=== PATIENT | female | born 1950 | race Caucasian/White ===

== ENCOUNTER 2020-01-17 11:26 | Outpatient (REF) | payer MEDICARE, OTHER, SELFPAY ==
--- NOTE | 2020-01-17 | MM_ITS ---
EXAMINATION: MM SCREENING DIGITAL BREAST TOMOSYNTHESIS, BILATERAL CLINICAL INFORMATION: Screening. Asymptomatic. The lifetime risk of breast cancer based on the Tyrer-Cuzick Model is 3.3%. COMPARISON: Mammography: July 07, 2018 and studies dating back to December 30, 2011 TECHNIQUE: Digital breast tomosynthesis is performed in both the craniocaudal and mediolateral oblique views along with computer-aided detection (CAD). Synthesized 2D images are generated from the tomosynthesis. Additional right exaggerated craniocaudal view performed. FINDINGS: There are scattered areas of fibroglandular density (ACR BI-RADS breast composition Category b). There are no significant masses, abnormal calcifications, or other abnormalities. MM/MM tomosynthesis screening BI IMPRESSION: There are no significant changes from prior study. ASSESSMENT: BI-RADS 1: Negative RECOMMENDATION: Routine annual mammography screening. This patient's information was entered into a reminder system with a target due date for their next mammogram.
== END 2020-01-17 11:27 | disposition home or self-care (01) ==
LOC: HO.MAMMO 11:26
PROVIDERS: PCP Internal Medicine; Visit Provider Internal Medicine
DX: Z12.31 Encounter for screening mammogram for malignant neoplasm of breast (principal)
CPT/HCPCS: 77063; 77067

== ENCOUNTER 2020-02-13 09:18 | Outpatient (REF) | payer MEDICARE, OTHER, SELFPAY ==
[2020-02-13 10:04] LABS: MANUAL DIFF FLAG NO
[2020-02-13 10:20] LABS: Basophils Percent Auto 0.4 % (0-2); Eosinophils Absolute Auto 0.1 X10*3/uL (0.0-0.4); Eosinophils Percent Auto 1.5 % (0-4); Hematocrit 41.3 % (37-47); Hemoglobin 14.1 g/dl (12.0-16.0); Imm Gran Abs Auto 0.02 X10*3/uL (0.00-0.03); Imm Gran Pct Auto 0.4 % (0.0-0.4); Lymphocytes Absolute Auto 1.1 X10*3/uL (1.2-4.9); Lymphocytes Percent Auto 23.5 % (20-40); Mean Corpuscular HGB Conc 34.1 g/dl (31.0-35.0); Mean Corpuscular Volume 90.8 fL (80-98); Mean Platelet Volume 11.5 fL (9.4-12.3); Monocytes Absolute Auto 0.3 X10*3/uL (0.1-1.2); Monocytes Percent Auto 6.1 % (2-11); Neutrophils Absolute Auto 3.2 X10*3/uL (2.0-8.3); Neutrophils Percent Auto 68.1 % (45-73); Platelet Count 150 X10*3/uL (160-400); Red Blood Count 4.55 X10*6/uL (4.20-5.50); Red Cell Distribution Width 12.2 % (11.0-16.0); White Blood Count 4.7 X10*3/uL (4.8-10.8)
[2020-02-13 10:35] LABS: Alanine Aminotransferase 14 U/L (0-31); Albumin Level 4.3 g/dL (3.5-5.0); Alkaline Phosphatase 72 U/L (39-117); Anion Gap 10 (12-20); Aspartate Amino Transferase 22 U/L (5-31); Bilirubin Total 1.1 mg/dL (0.0-1.0); Blood Urea Nitrogen 17 mg/dL (9-16); Calcium 8.7 mg/dL (8.4-10.2); Carbon Dioxide 29 mmol/L (22-29); Chloride 103 mmol/L (96-108); Cholesterol 239 mg/dL; Estimated Glomerular Filt Rate > 60; Glucose Fasting 81 mg/dL (60-99); HDL Cholesterol 92 mg/dL; LDL Cholesterol Calculated 140 mg/dl; Potassium 4.1 mmol/l (3.3-5.1); Sodium 138 mmol/L (135-145); Total Protein 6.3 g/dL (6.5-8.0); Triglycerides 39 mg/dL
[2020-02-13 10:54] LABS: Vitamin D 25-OH Total 44.9 ng/mL (>30)
== END 2020-02-13 09:19 | disposition home or self-care (01) ==
LOC: HO.10HDL 09:18
PROVIDERS: PCP Internal Medicine; Visit Provider Internal Medicine
DX: E78.00 Pure hypercholesterolemia, unspecified (principal); K57.90 Diverticulosis of intestine, part unspecified, without perforation or abscess without bleeding; M81.0 Age-related osteoporosis without current pathological fracture
CPT/HCPCS: 36415; 80053; 80061; 82306; 85025

== ENCOUNTER 2020-07-08 15:07 | Outpatient (REF) | payer MEDICARE, OTHER, SELFPAY ==
--- NOTE | ~2020-07-08 | XR_ITS ---
EXAMINATION: XR CHEST CLINICAL INFORMATION: Cough and wheezing COMPARISON: Previous chest x-ray March 2012 TECHNIQUE: 2 views of the chest were obtained. FINDINGS: The heart does not appear enlarged. There is abnormal contour to the aortic knob. Appearance is questionable for possible aneurysm. The hilar and mediastinal contours are otherwise unremarkable. The lungs are well inflated. There is biapical pleural and parenchymal scarring that is unchanged. The lungs are otherwise clear. There is no pleural effusion or pneumothorax. There is curvature of the lower thoracic and upper lumbar spine to the right. There may be bilateral cervical ribs. XR/XR chest 2V IMPRESSION: New abnormal contour to the aortic knob questionable for aneurysm. Follow-up CTA of the chest recommended. The Findings will be communicated by the [facility] work flow quality assurance lab technician Minna Dunlap.
== END 2020-07-08 15:08 | disposition home or self-care (01) ==
LOC: HO.XRAY 15:07
PROVIDERS: PCP Internal Medicine; Visit Provider Internal Medicine
DX: R05 Cough (principal); R06.2 Wheezing; K21.9 Gastro-esophageal reflux disease without esophagitis
CPT/HCPCS: 71046

== ENCOUNTER 2020-07-09 09:31 | Outpatient (REF) | payer MEDICARE, OTHER, SELFPAY ==
[2020-07-09 10:22] LABS: Anion Gap 10 (12-20); Blood Urea Nitrogen 18 mg/dL (9-16); Calcium 9.5 mg/dL (8.4-10.2); Carbon Dioxide 30 mmol/L (22-29); Chloride 107 mmol/L (96-108); Estimated Glomerular Filt Rate > 60; Glucose Fasting 86 mg/dL (60-99); Potassium 4.2 mmol/L (3.3-5.1); Sodium 143 mmol/L (135-145)
== END 2020-07-09 09:32 | disposition home or self-care (01) ==
LOC: HO.10HDL 09:31
PROVIDERS: Visit Provider Internal Medicine
DX: Z01.812 Encounter for preprocedural laboratory examination (principal); I10 Essential (primary) hypertension
CPT/HCPCS: 36415; 80048

== ENCOUNTER 2020-09-10 15:53 | Outpatient (REF) | payer MEDICARE, OTHER, SELFPAY ==
[2020-09-10 16:35] LABS: Anion Gap 13 (12-20); Blood Urea Nitrogen 19 mg/dL (9-16); Calcium 9.3 mg/dL (8.4-10.2); Carbon Dioxide 28 mmol/L (22-29); Chloride 105 mmol/L (96-108); Estimated Glomerular Filt Rate > 60; Glucose Random 111 mg/dL (60-115); Potassium 3.9 mmol/L (3.3-5.1); Sodium 142 mmol/L (135-145)
== END 2020-09-10 15:54 | disposition home or self-care (01) ==
LOC: HO.LAB 15:53
PROVIDERS: PCP Internal Medicine; Visit Provider Internal Medicine
DX: Z01.812 Encounter for preprocedural laboratory examination (principal)
CPT/HCPCS: 36415; 80048

== ENCOUNTER 2020-09-15 08:15 | Outpatient (REF) | payer MEDICARE, OTHER, SELFPAY ==
--- NOTE | ~2020-09-15 | CT_ITS ---
EXAMINATION: CT ANGIOGRAM CHEST CLINICAL INFORMATION: Possible aneurysm of the thoracic aorta. COMPARISON: Previous chest x-rays, most recent 07/08/2020. TECHNIQUE: Multiple axial images were obtained through the chest after the administration of 70 mL of Omnipaque 350 intravenous contrast. Extensive vascular post-processing including two-dimensional and three-dimensional reformatted images were created and reviewed on an independent workstation. This CT examination was performed using dose optimization techniques as appropriate, variously including the following: *Automated exposure control *Adjustment of mA and/or kV according to patient size (this includes techniques or standardized protocols for targeted exams where dose is matched to indication/reason for exam; i.e. extremities or head) *Use of iterative reconstruction technique DLP: 78 mGy-cm FINDINGS: The ascending thoracic aorta is normal in caliber measuring 3.2 x 3.1 cm. There is mild dilatation of the distal aortic arch measuring up to 3.3 cm. The descending thoracic aorta is normal in caliber measuring 2.3 cm. The great vessel origins are patent. There is variant anatomy with direct origin of the left vertebral artery from the aortic arch. Heart does not appear enlarged. There is no pericardial effusion. There are no enlarged hilar or mediastinal lymph nodes. The thyroid gland is unremarkable. There is mild biapical pleural parenchymal scarring. The lungs are otherwise clear. There is no pleural effusion or pleural thickening. No chest wall mass or enlarged axillary lymph nodes are seen. There may be left renal peripelvic cysts. Images through the upper abdomen are otherwise unremarkable. There is curvature of the proximal thoracic spine to the left. Bony structures are otherwise unremarkable CT/CT angio chest IMPRESSION: Mild dilatation of the distal aortic arch measuring 3.3 cm. No aneurysm is seen.
[2020-09-15] MEDS: iohexoL 350 MG/ML 100 ML INFUS..BTL IV (09:14)
== END 2020-09-15 08:16 | disposition home or self-care (01) ==
LOC: HO.CT 08:15
PROVIDERS: Visit Provider Internal Medicine
DX: R91.8 Other nonspecific abnormal finding of lung field (principal)
CPT/HCPCS: 71275; Q9967

== ENCOUNTER 2021-01-30 07:19 | Outpatient (REF) | payer MEDICARE, OTHER, SELFPAY ==
--- NOTE | ~2021-01-30 | MM_ITS ---
EXAMINATION: MM SCREENING DIGITAL BREAST TOMOSYNTHESIS, BILATERAL CLINICAL INFORMATION: Screening. Asymptomatic. The lifetime risk of breast cancer based on the Tyrer-Cuzick Model is 3%. COMPARISON: Mammography: 01/17/2020, 07/07/2018, 06/29/2018, 06/22/2017 TECHNIQUE: Digital breast tomosynthesis is performed in both the craniocaudal and mediolateral oblique views along with computer-aided detection (CAD). Synthesized 2D images are generated from the tomosynthesis. FINDINGS: There are scattered areas of fibroglandular density (ACR BI-RADS breast composition Category b). There are no significant masses, abnormal calcifications, or other abnormalities. Parenchymal pattern is similar to prior exams. The axilla and skin contours are unremarkable. MM/MM tomosynthesis screening BI IMPRESSION: No mammographic evidence of malignancy. ASSESSMENT: BI-RADS 1: Negative RECOMMENDATION: Routine annual mammography screening. This patient's information was entered into a reminder system with a target due date for their next mammogram.
== END 2021-01-30 07:20 | disposition home or self-care (01) ==
LOC: HO.MAMMO 07:19
PROVIDERS: PCP Internal Medicine; Visit Provider Obstetrics & Gynecology
DX: Z12.31 Encounter for screening mammogram for malignant neoplasm of breast (principal)
CPT/HCPCS: 77063; 77067

== ENCOUNTER 2021-08-27 08:03 | Outpatient (REF) | payer MEDICARE, OTHER, SELFPAY ==
[2021-08-27 10:32] LABS: MANUAL DIFF FLAG NO
[2021-08-27 10:36] LABS: Basophils Percent Auto 0.5 % (0-2); Eosinophils Absolute Auto 0.1 X10*3/uL (0.0-0.4); Eosinophils Percent Auto 1.5 % (0-4); Hemoglobin 14.2 g/dl (12.0-16.0); Imm Gran Abs Auto 0.01 X10*3/uL (0.00-0.03); Imm Gran Pct Auto 0.2 % (0.0-0.4); Lymphocytes Absolute Auto 1.4 X10*3/uL (1.2-4.9); Lymphocytes Percent Auto 34.7 % (20-40); Mean Corpuscular HGB Conc 34.6 g/dl (31.0-35.0); Mean Corpuscular Hemoglobin 31.6 pg (27.0-33.0); Mean Corpuscular Volume 91.1 fL (80.0-98.0); Mean Platelet Volume 11.6 fL (9.4-12.3); Monocytes Absolute Auto 0.4 X10*3/uL (0.1-1.2); Monocytes Percent Auto 10.8 % (2-11); Neutrophils Absolute Auto 2.1 x10*3/uL (2.0-8.3); Neutrophils Percent Auto 52.3 % (45-73); Platelet Count 156 X10*3/uL (160-400); Red Cell Distribution Width 12.4 % (11.0-16.0); White Blood Count 4.1 X10*3/uL (4.8-10.8)
[2021-08-27 10:55] LABS: Alanine Aminotransferase 24 U/L (0-31); Albumin Level 4.3 g/dL (3.5-5.0); Alkaline Phosphatase 71 U/L (39-117); Anion Gap 10 (12-20); Aspartate Amino Transferase 31 U/L (5-31); Bilirubin Total 0.8 mg/dL (0.0-1.0); Blood Urea Nitrogen 22 mg/dL (9-16); Calcium 9.7 mg/dL (8.4-10.2); Carbon Dioxide 30 mmol/L (22-29); Chloride 106 mmol/L (96-108); Cholesterol 266 mg/dL; Estimated Glomerular Filt Rate > 60; Glucose Fasting 80 mg/dL (60-99); HDL Cholesterol 85 mg/dL; LDL Cholesterol Calculated 174 mg/dl; Potassium 3.9 mmol/L (3.3-5.1); Sodium 142 mmol/L (135-145); Total Protein 6.4 g/dL (6.5-8.0); Triglycerides 37 mg/dL
[2021-08-27 11:11] LABS: Vitamin D 25-OH Total 63.5 ng/mL (>30)
== END 2021-08-27 08:04 | disposition home or self-care (01) ==
LOC: HO.10HDL 08:03
PROVIDERS: Visit Provider Internal Medicine
DX: Z00.00 Encounter for general adult medical examination without abnormal findings (principal); M81.0 Age-related osteoporosis without current pathological fracture
CPT/HCPCS: 36415; 80053; 80061; 82306; 85025

== ENCOUNTER 2021-09-03 07:52 | Outpatient (REF) | payer MEDICARE, OTHER, SELFPAY ==
[2021-09-03 11:26] LABS: Cholesterol 257 mg/dL; HDL Cholesterol 81 mg/dL; LDL Cholesterol Calculated 169 mg/dl; Triglycerides 39 mg/dL
== END 2021-09-03 07:53 | disposition home or self-care (01) ==
LOC: HO.10HDL 07:52
PROVIDERS: Visit Provider Internal Medicine
DX: E78.00 Pure hypercholesterolemia, unspecified (principal)
CPT/HCPCS: 36415; 80061

== ENCOUNTER 2021-09-15 15:20 | Outpatient (REF) | payer MEDICARE, OTHER, SELFPAY ==
[2021-09-15 16:58] LABS: C Reactive Protein 0.07 mg/dL (< or = 0.50)
[2021-09-15 17:10] LABS: Uric Acid 2.9 mg/dL (2.4-5.7)
== END 2021-09-15 15:21 | disposition home or self-care (01) ==
LOC: HO.LAB 15:20
PROVIDERS: PCP Internal Medicine; Visit Provider Internal Medicine
DX: R60.0 Localized edema (principal); M79.675 Pain in left toe(s)
CPT/HCPCS: 36415; 84550; 86140

== ENCOUNTER 2021-09-21 13:59 | Outpatient (REF) | payer MEDICARE, OTHER, SELFPAY ==
--- NOTE | ~2021-09-21 | XR_ITS ---
EXAMINATION: XR FOOT, LEFT CLINICAL INFORMATION: Pain. COMPARISON: 07/02/2014. TECHNIQUE: AP, lateral, and oblique views of the left foot. FINDINGS: There is no evidence of acute fracture or dislocation of the left foot. Joint spaces are maintained. There is again noted to be some mild hallux valgus deformity of the 1st metatarsophalangeal joint with some adjacent medial soft tissue swelling. No radiopaque foreign bodies are identified. XR/XR foot LT min 3V IMPRESSION: Hallux valgus deformity of the 1st toe. No acute fracture or dislocation.
== END 2021-09-21 14:00 | disposition home or self-care (01) ==
LOC: HO.XRAY 13:59
PROVIDERS: PCP Internal Medicine; Visit Provider Internal Medicine
DX: M79.672 Pain in left foot (principal)
CPT/HCPCS: 73630

== ENCOUNTER 2021-09-29 09:17 | Outpatient (REF) | payer MEDICARE, OTHER, SELFPAY ==
[2021-09-29 11:29] LABS: C Reactive Protein 0.59 mg/dL (< or = 0.50); Uric Acid 3.7 mg/dL (2.4-5.7)
[2021-09-29 11:35] LABS: Erythrocyte Sedimentation Rate 6 MM/HR (0-20)
[2021-10-01 02:17] LABS: Lyme Blot 4.13 index
[2021-10-03 11:33] LABS: 18 KD (IgG) Band NON-REACTIVE; 23 KD (IgG) Band NON-REACTIVE; 23 KD (IgM) Band NON-REACTIVE; 28 KD (IgG) Band NON-REACTIVE; 30 KD (IgG) Band NON-REACTIVE; 39 KD (IgM) Band NON-REACTIVE; 39KD (IgG) Band NON-REACTIVE; 41 KD (IgM) Band NON-REACTIVE; 41KD (IgG) Band REACTIVE; 45 KD (IgG) Band NON-REACTIVE; 58 KD (IgG) Band REACTIVE; 66 KD (IgG) Band NON-REACTIVE; 93 KD (IgG) Band NON-REACTIVE; Lyme IgG Blot Interp NEGATIVE (NEGATIVE); Lyme IgM Blot Interp NEGATIVE (NEGATIVE)
[2021-10-03 11:35] LABS: Lyme Abs Screen POSITIVE
== END 2021-09-29 09:18 | disposition home or self-care (01) ==
LOC: HO.10HDL 09:17
PROVIDERS: Visit Provider Internal Medicine
DX: A69.20 Lyme disease, unspecified (principal); R60.0 Localized edema
CPT/HCPCS: 36415; 84550; 85652; 86140; 86617; 86618

== ENCOUNTER 2022-02-03 07:54 | Outpatient (REF) | payer MEDICARE, OTHER, SELFPAY ==
--- NOTE | ~2022-02-03 | MM_ITS ---
EXAMINATION: MM SCREENING DIGITAL BREAST TOMOSYNTHESIS, BILATERAL CLINICAL INFORMATION: Screening. Asymptomatic. The lifetime risk of breast cancer based on the Tyrer-Cuzick Model is 3%. COMPARISON: Mammography: 01/30/2021, 01/17/2020, 07/07/2018, 06/29/2018 TECHNIQUE: Digital breast tomosynthesis is performed in both the craniocaudal and mediolateral oblique views along with computer-aided detection (CAD). Synthesized 2D images are generated from the tomosynthesis. FINDINGS: There are scattered areas of fibroglandular density (ACR BI-RADS breast composition Category b). There are no significant masses, abnormal calcifications, or other abnormalities. Parenchymal pattern is similar to prior studies. There is no developing density or architectural abnormality. The axilla and skin contours are unremarkable. No significant changes. MM/MM tomosynthesis screening BI IMPRESSION: No mammographic evidence of malignancy. ASSESSMENT: BI-RADS 1: Negative RECOMMENDATION: Routine annual mammography screening. This patient's information was entered into a reminder system with a target due date for their next mammogram.
== END 2022-02-03 07:55 | disposition home or self-care (01) ==
LOC: HO.MAMMO 07:54
PROVIDERS: PCP Internal Medicine; Visit Provider Internal Medicine
DX: Z12.31 Encounter for screening mammogram for malignant neoplasm of breast (principal)
CPT/HCPCS: 77063; 77067

== ENCOUNTER 2022-11-16 16:29 | Outpatient (REF) | payer MEDICARE, OTHER, SELFPAY ==
--- NOTE | ~2022-11-16 | XR_ITS ---
EXAMINATION: XR ABDOMEN KUB CLINICAL INDICATION: Abdominal pain COMPARISON: 08/20/2016 TECHNIQUE: AP view of the abdomen. FINDINGS: Nonobstructive bowel gas pattern. No dilated loops of bowel. Scattered gas and stool throughout the colon with mild colonic stool burden. Stool at the rectum. No suspicious calcifications. The lung bases are clear. Mild scoliotic curvature of the spine. XR/XR KUB IMPRESSION: Nonobstructive bowel gas pattern. Mild colonic stool burden.
[2022-11-16 16:42] LABS: MANUAL DIFF FLAG NO
[2022-11-16 17:06] LABS: Basophils Percent Auto 0.7 % (0-2); Eosinophils Absolute Auto 0.1 X10*3/uL (0.0-0.4); Eosinophils Percent Auto 1.5 % (0-4); Hematocrit 43.1 % (37.0-47.0); Imm Gran Abs Auto 0.01 X10*3/uL (0.00-0.03); Imm Gran Pct Auto 0.2 % (0.0-0.4); Lymphocytes Absolute Auto 1.2 X10*3/uL (1.2-4.9); Lymphocytes Percent Auto 30.5 % (20-40); Mean Corpuscular HGB Conc 34.8 g/dl (31.0-35.0); Mean Corpuscular Hemoglobin 30.9 pg (27.0-33.0); Mean Corpuscular Volume 88.9 fL (80.0-98.0); Mean Platelet Volume 10.8 fL (9.4-12.3); Monocytes Absolute Auto 0.3 X10*3/uL (0.1-1.2); Monocytes Percent Auto 6.4 % (2-11); Neutrophils Absolute Auto 2.5 x10*3/uL (2.0-8.3); Neutrophils Percent Auto 60.7 % (45-73); Platelet Count 174 X10*3/uL (160-400); Red Blood Count 4.85 X10*6/uL (4.20-5.50); Red Cell Distribution Width 11.9 % (11.0-16.0); White Blood Count 4.1 X10*3/uL (4.8-10.8)
[2022-11-16 17:28] LABS: Alanine Aminotransferase 19 U/L (0-31); Albumin Level 4.4 g/dL (3.5-5.0); Alkaline Phosphatase 83 U/L (39-117); Anion Gap 11 (12-20); Aspartate Amino Transferase 26 U/L (5-31); Bilirubin Total 1.6 mg/dL (0.0-1.0); Blood Urea Nitrogen 17 mg/dL (9-16); C Reactive Protein < 0.10 mg/dL (< or = 0.50); Calcium 10.1 mg/dL (8.4-10.2); Carbon Dioxide 27 mmol/L (22-29); Chloride 106 mmol/L (96-108); Estimated Glomerular Filt Rate > 60; Glucose Random 71 mg/dL (60-115); Lipase 31 U/L (8-78); Potassium 4.2 mmol/L (3.3-5.1); Sodium 140 mmol/L (135-145); Total Protein 6.8 g/dL (6.5-8.0)
[2022-11-16 17:39] LABS: Appearance Urine Clear; Color Urine Yellow; Glucose Urine UA Negative (Negative); Leukocyte Esterase Urine Small (1+) (Negative); Nitrite Urine Negative (Negative); PH 5.5 (5.0-9.0); Specific Gravity - Urine 1.015 (1.005-1.025); UMIC TRIGGER UA YES; Urine Blood Negative (Negative); Urine Ketones 40 mg/dL (Negative); Urine Protein Negative (Neg-Trace)
[2022-11-16 17:43] LABS: Thyroid Stimulating Hormone 0.95 uIU/mL (0.32-4.0)
[2022-11-16 17:53] LABS: Erythrocyte Sedimentation Rate 2 MM/HR (0-20)
[2022-11-16 18:48] LABS: Bacteria Urine None Seen (None Seen); Hyaline Casts Urine 0-2 /LPF (0-2); RBC Urine 0-2 /HPF (0-2); Squamous Epithelial Cell Urine 0-2 /HPF (0-2)
== END 2022-11-16 16:30 | disposition home or self-care (01) ==
LOC: HO.LAB 16:29
PROVIDERS: PCP Internal Medicine; Visit Provider Internal Medicine
DX: R10.9 Unspecified abdominal pain (principal); K57.90 Diverticulosis of intestine, part unspecified, without perforation or abscess without bleeding; K21.9 Gastro-esophageal reflux disease without esophagitis
CPT/HCPCS: 36415; 74018; 80053; 81001; 83690; 84443; 85025; 85652; 86140

== ENCOUNTER 2023-02-09 07:45 | Outpatient (REF) | payer MEDICARE, OTHER, SELFPAY | END 2023-02-09 07:46 | disposition home or self-care (01) | LOC: HO.MAMMO 07:45 | PROVIDERS: PCP Internal Medicine; Visit Provider Internal Medicine | DX: Z12.31 Encounter for screening mammogram for malignant neoplasm of breast (principal) | CPT/HCPCS: 77063; 77067 ==

== ENCOUNTER → 2023-02-09 08:00 | Outpatient (BNV) | payer MEDICARE, OTHER, SELFPAY | PROVIDERS: PCP Internal Medicine; Visit Provider Radiology Diagnostic Radiology | DX: Z12.31 Encounter for screening mammogram for malignant neoplasm of breast (principal) | CPT/HCPCS: 77063; 77067 ==

== ENCOUNTER 2023-08-08 15:27 | Outpatient (REF) | payer MEDICARE, OTHER, SELFPAY ==
[2023-08-08 15:54] LABS: MANUAL DIFF FLAG NO
[2023-08-08 17:17] LABS: Eosinophils Absolute Auto 0.1 X10*3/uL (0.0-0.4); Eosinophils Percent Auto 3.2 % (0-4); Hematocrit 40.1 % (37.0-47.0); Hemoglobin 13.9 g/dl (12.0-16.0); Imm Gran Abs Auto 0.01 X10*3/uL (0.00-0.03); Imm Gran Pct Auto 0.2 % (0.0-0.4); Lymphocytes Absolute Auto 1.1 X10*3/uL (1.2-4.9); Lymphocytes Percent Auto 27.6 % (20-40); Mean Corpuscular HGB Conc 34.7 g/dl (31.0-35.0); Mean Corpuscular Hemoglobin 31.5 pg (27.0-33.0); Mean Corpuscular Volume 90.9 fL (80.0-98.0); Mean Platelet Volume 11.6 fL (9.4-12.3); Monocytes Absolute Auto 0.3 X10*3/uL (0.1-1.2); Monocytes Percent Auto 6.7 % (2-11); Neutrophils Absolute Auto 2.5 x10*3/uL (2.0-8.3); Neutrophils Percent Auto 61.3 % (45-73); Platelet Count 181 X10*3/uL (160-400); Red Blood Count 4.41 X10*6/uL (4.20-5.50); Red Cell Distribution Width 12.2 % (11.0-16.0)
[2023-08-08 18:11] LABS: Alanine Aminotransferase 19 U/L (0-31); Albumin Level 4.2 g/dL (3.5-5.0); Alkaline Phosphatase 76 U/L (39-117); Anion Gap 11 (12-20); Aspartate Amino Transferase 23 U/L (5-31); Bilirubin Total 0.7 mg/dL (0.0-1.0); Blood Urea Nitrogen 19 mg/dL (9-16); C Reactive Protein 0.16 mg/dL (< or = 0.50); Calcium 9.3 mg/dL (8.4-10.2); Carbon Dioxide 28 mmol/L (22-29); Chloride 107 mmol/L (96-108); Estimated Glomerular Filt Rate > 60; Glucose Random 84 mg/dL (60-115); Lipase 60 U/L (8-78); Potassium 3.8 mmol/L (3.3-5.1); Sodium 142 mmol/L (135-145); Total Protein 6.5 g/dL (6.5-8.0)
== END 2023-08-08 15:28 | disposition home or self-care (01) ==
LOC: HO.LAB 15:27
PROVIDERS: PCP Internal Medicine; Visit Provider Internal Medicine
DX: E10.9 Type 1 diabetes mellitus without complications (principal); E78.00 Pure hypercholesterolemia, unspecified
CPT/HCPCS: 36415; 80053; 82550; 83690; 85025; 86140

== ENCOUNTER 2023-08-19 07:46 | Outpatient (REF) | payer MEDICARE, OTHER, SELFPAY ==
--- NOTE | ~2023-08-19 | US_ITS ---
EXAMINATION: US ABDOMEN COMPLETE CLINICAL INFORMATION: Gastric pain, abdominal pain. COMPARISON: X-ray KUB 11/16/2022. CT abdomen and pelvis 08/20/2016. Ultrasound abdomen 01/31/2013. TECHNIQUE: Real-time imaging of the abdominal viscera. Limited visualization due to bowel gas. FINDINGS: PANCREAS: Limited visualization of pancreatic tail and head. Imaged portion of pancreatic body is unremarkable. ABDOMINAL AORTA: Atherosclerosis. Limited visualization. INFERIOR VENA CAVA: Visualized portions are normal. LIVER: Mildly increased. Hepatic parenchymal heterogeneity and echogenicity could be associated with hepatocellular disease/hepatic steatosis and substantially limits visualization. Correlation with liver function tests and clinical exam recommended to determine further management. GALLBLADDER: No gallstones. No gallbladder wall thickening. COMMON BILE DUCT: Normal in caliber measuring 0.3 cm in diameter. RIGHT KIDNEY: Malrotation redemonstrated. Limited visualization. No hydronephrosis. No renal calculi or focal parenchymal lesions. The kidney measures 10.8 cm in maximum dimension. LEFT KIDNEY: A 2.5 cm mid pole cyst with benign features. There is no indication for follow-up imaging. Multiple additional smaller renal cysts redemonstrated. Limited visualization. No hydronephrosis or renal calculi. The kidney measures 11.6 cm in maximum dimension. SPLEEN: Normal. The spleen measures 7.6 cm in maximum dimension. FREE FLUID: None. US/US abdomen complete IMPRESSION: 1. Mildly increased hepatic parenchymal heterogeneity and echogenicity could be associated with hepatocellular disease/hepatic steatosis and substantially limits visualization. Correlation with liver function tests and clinical exam recommended to determine further management. 2. Atherosclerosis in the abdominal aorta.
== END 2023-08-19 07:47 | disposition home or self-care (01) ==
LOC: HO.US 07:46
PROVIDERS: PCP Internal Medicine; Visit Provider Internal Medicine
DX: R10.84 Generalized abdominal pain (principal); R10.13 Epigastric pain
CPT/HCPCS: 76700

== ENCOUNTER 2023-11-10 08:57 | Outpatient (REF) | payer MEDICARE, OTHER, SELFPAY ==
[2023-11-10 11:14] LABS: Appearance Urine Clear; Color Urine Dark Yellow; Glucose Urine UA Negative (Negative); Leukocyte Esterase Urine Trace (Negative); Nitrite Urine Negative (Negative); UMIC TRIGGER UACC YES; Urine Blood Negative (Negative); Urine Ketones Trace mg/dL (Negative); Urine Protein Negative (Neg-Trace)
[2023-11-10 11:19] LABS: Bacteria Urine None Seen (None Seen); Hyaline Casts Urine 0-2 /LPF (0-2); RBC Urine 0-2 /HPF (0-2); Squamous Epithelial Cell Urine 0-2 /HPF (0-2); WBC Urine 0-5 /HPF (0-5)
== END 2023-11-10 08:58 | disposition home or self-care (01) ==
LOC: HO.10HDLNP 08:57
PROVIDERS: Visit Provider Internal Medicine
DX: R30.0 Dysuria (principal)
CPT/HCPCS: 81001; 87086

== ENCOUNTER 2024-02-14 07:51 | Outpatient (REF) | payer MEDICARE, OTHER, SELFPAY | END 2024-02-14 07:52 | disposition home or self-care (01) | LOC: HO.MAMMO 07:51 | PROVIDERS: Visit Provider Internal Medicine | DX: Z12.31 Encounter for screening mammogram for malignant neoplasm of breast (principal) | CPT/HCPCS: 77063; 77067 ==

== ENCOUNTER → 2024-02-14 08:00 | Outpatient (BNV) | payer MEDICARE, OTHER, SELFPAY | PROVIDERS: Visit Provider Internal Medicine | DX: Z12.31 Encounter for screening mammogram for malignant neoplasm of breast (principal) | CPT/HCPCS: 77063; 77067 ==

== ENCOUNTER 2024-04-06 08:55 | Outpatient (AMB) | payer MEDICARE, OTHER, SELFPAY ==
--- NOTE | 2024-04-06 08:58 | A.OFFPC_ITS ---
Vital Signs 04/06/24 09:06 Height 5 ft 4 in Weight 104 lb 4 oz BMI 17.9 BP 108/66 Blood Pressure Location Rt brachial Position Sitting Respiration 12 Pulse 76 Pulse Source Pulse Oximeter Temp 97.1 F Temp Source Oral Pulse Oximetry (%) 98 Oxygen Delivery Method Room Air Intake Visit Reasons: Transfer / Care from Dr. 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: No Allergies codeine [CODEINE] Allergy (Mild, Verified 04/06/24 09:45) STOMACH UPSET Medication List - Last Reconciled 04/06/24 by MADISON Feldman No Known Home Meds Tobacco use date assessed: 04/06/24 Fall risk assessment: No Falls in past year Last assessed Fall Risk: 04/06/24 Dental Screening Dental Screen Date: 04/06/24 Did you have a dental visit in the last 12 months?: Yes Did you have a dental problem in the last 6 months where you did not have access to dental care?: No Was dental information given to patient?: Patient has dentist HPI HPI Comments History of Present Illness Details 73-year-old female with CAD (arterioscle rosis of the abdominal aorta noted on abdominal ultrasound August of 2023), hepatic steatosis, 2.5 cm mid pole left renal cyst benign,mild dilatation of the distal aortic arch measuring up to 3.3 cm ( CTA of the chest September of 2020), osteopenia 3.3 cm 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 Lifts weights, exercises PFSH Medical History (Updated 04/06/24 @ 09:32 by MADISON Feldman) No pertinent past medical history Surgical History (Updated 04/06/24 @ 09:06 by Moisés Grimes MA) No pertinent past surgical history Family History (Updated 04/06/24 @ 09:06 by Moisés Grimes MA) Father Mental health disorder Dementia Stomach cancer Mother Mental health disorder Dementia Brother Alzheimer disease Maternal Grandmother Diabetes Son Thyroid disorder Social History (Updated 04/06/24 @ 09:03 by Moisés Grimes MA) Household Members: Children Both parents involved: No Caregiver staying overnight: No Housing: House Are you a primary hospice care transitions coordinator to a significant other at home: No Do you presently have visiting nurse or other home services: No 75 years or older and lives alone: No Alcohol intake: current Alcohol intake frequency: a few times a month Patient Tobacco Use Status: Never used Tobacco e-Cigarette/Vaping Use: Never Used Second Hand Smoke Exposure: No Current occupational status: retired Cognitive needs: No Hearing needs: No Vision needs: Yes (wear glasses) Questionnaire PHQ-9 Over the last 2 weeks, how often have you been bothered by any of the following problems? 1. Little interest or pleasure in doing things: not at all 2. Feeling down, depressed, or hopeless: not at all 3. Trouble falling or staying asleep, or sleeping too much: not at all 4. Feeling tired or having little energy: not at all 5. Poor appetite or overeating: not at all 6. Feeling bad about yourself - or that you are a failure or have let yourself or your family down: not at all 7. Trouble concentrating on things, such as reading the newspaper or watching television: not at all 8. Moving or speaking so slowly that other people could have noticed. Or the opposite - being so fidgety or restless that you have been moving around a lot more than usual: not at all 9. Thoughts that you would be better off or of hurting yourself in some way: not at all Total score: 0 Depression Screening Interpretation: Negative Depression Screening Done: Yes 72963 - PHQ-9 Billing: Yes Source: Developed by Drs. Yakov Schultz, Justine Agustin, Pal Luu and colleagues, with an educational roberto from [employer]. Thrive Questionnaire Date Thrive assessed: 04/06/24 I am a: Patient What is your living situation today?: I have a steady place to live Within the past 12 months, did the food you bought not last and you didn't have the money to get more?: Never true Within the past 12 months, did you worry whether your food would run out before you got money to buy more?: Never true Do you have trouble paying for medicines?: No Do you have trouble getting transportation to medical appointments?: No Do you have trouble paying your heating and electricity bill?: No Do you have trouble taking care of your child, family member or friend?: No Do you have trouble with day-to-day activities such as bathing, preparing meals, shopping, managing finances, etc.?: No Are you currently unemployed and looking for a job?: No Are you interested in more education?: No Please select the resources that you would like help with: None Currently or been in a relationship where the following occur: No concerns reported THRIVE Score: 0 AUDIT C Alcohol Use Questionnaire (AUDIT-C) 1. How often do you have a drink containing alcohol?: Monthly or less 2. How many drinks containing alcohol do you have on a typical day when you are drinking?: 1 or 2 3. How often do you have six or more drinks on one occasion?: Never Total Score: 1 Score Reviewed/Action Taken: Yes CANDI-7 AMB Questionnaire CANDI-7 Date CANDI - 7 assessed: 04/06/24 Feeling nervous, anxious, or on edge: 0 = Not at all Not being able to stop or control worryin = Not at all Worrying too much about different things: 0 = Not at all Trouble relaxin = Not at all Being so restless that it is hard to sit still: 0 = Not at all Becoming easily annoyed or irritable: 0 = Not at all Feeling afraid as if something awful might happen: 0 = Not at all Total CANDI-7 score (0-4 normal; 5-9 mild; 10-14 moderate; 15-21 severe): 0 Source: Developed by Drs. Yakov Schultz, Justine Agustin, Pal Luu and colleagues, with an educational roberto from [employer]. CANDI-7 Assessment Billing CANDI-7 Assessment Tool: CANDI-7 Assessment 63700 Physical exam (Primary Care) Vital Signs: Last Vital Signs Temp 97.1 F 04/06/24 09:06 Pulse 76 04/06/24 09:06 Resp 12 04/06/24 09:06 BP 108/66 04/06/24 09:06 Pulse Ox 98 04/06/24 09:06 Oxygen Delivery Method Room Air 04/06/24 09:06 BMI result Body Mass Index 17.9 Tobacco/Smoking Status: Tobacco use Status Tobacco use date assessed 04/06/24 04/06/24 09:09 Patient Tobacco Use Status Never used Tobacco 04/06/24 09:09 e-Cigarette/Vaping Use Never Used 04/06/24 09:09 PHQ-9: PHQ-9 Score PHQ-9: Total score 0 04/06/24 08:58 Depression Screening Interpretation: Negative Thrive Assessment: Date of Thrive Assessment Date Thrive assessed 04/06/24 04/06/24 08:58 Currently or been in a relationship where the following occur: No concerns reported Coding Diagnoses Coronary artery disease involving [place] coronary artery of [place] heart without angina pectoris I25.10 Coronary Disease-Associated Artery/Lesion type: [place] artery [place] vs. transplanted heart: [place] heart Associated angina: without angina Hepatic steatosis K76.0 Renal cyst N28.1 Dilatation of aorta I77.819 Family history of Alzheimer disease Z82.0 Additional Codes CANDI-7 Assessment Billing - CANDI-7 Assessment Tool: CANDI-7 Assessment 35709 ([id number]) PHQ-9 - 28845 - PHQ-9 Billing: Yes ([id number]) Assessment & Plan Assessment & Plan (1) CAD (coronary artery disease): Comment: CAD (arteriosclerosis of the abdominal aorta noted on abdominal ultrasound August of 2023), Code(s): I25.10 - Atherosclerotic heart disease of [place] coronary artery without angina pectoris Category: Medical Qualifiers: Coronary Disease-Associated Artery/Lesion type: [place] artery [place] vs. transplanted heart: [place] heart Associated angina: without angina Qualified Code(s): I25.10 - Atherosclerotic heart disease of [place] coronary a rtery without angina pectoris (2) Hepatic steatosis: Comment: hepatic steatosis abd US August 2023 Code(s): K76.0 - Fatty (change of) liver, not elsewhere classified Category: Medical (3) Renal cyst: Comment: 2.5 cm mid pole left renal cyst benign, multiple L renal cysts - benign Abd [id number] Code(s): N28.1 - Cyst of kidney, acquired Category: Medical (4) Dilatation of aorta: Comment: mild dilatation of the distal aortic arch measuring up to 3.3 cm ( CTA of the chest September of 2020) Code(s): I77.819 - Aortic ectasia, unspecified site Category: Medical (5) Family history of Alzheimer disease: Code(s): Z82.0 - Family history of epilepsy and other diseases of the nervous system Category: Medical Orders: Orders CA echo transthoracic complete Today I25.10 - Atherosclerotic heart disease of [place] coronary artery without angina pectoris, I77.819 - Aortic ectasia, unspecified site
[2024-04-06 09:06] VITALS: BP 108/66; PULSE 76; RESP 12; TEMP 36.2; O2SAT 98; BMI 17.9
--- OUTSIDE RECORDS SUMMARY | 2024-04-06 09:21 | XMS_ITS | Clinical Summary ---
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 Name Role Phone Unavailable Primary Care Provider Unavailabl e Social History Tobacco Use Types Packs/Day Years Used Date Smoking Tobacco: Never Assessed Sex and Gender Information Value Date Recorded Sex Assigned at Not on file Gender Identity Not on file Sexual Orientation Not on file Plan of Treatment Health Maintenance Due Date Last Done Comments Hepatitis C Virus Screening 1950 DTaP/Tdap/Td Vaccines (1 - Tdap) 1968 Pneumococcal Vaccines 50+ (1 of 1 - PCV) 07/30/1999 Zoster (Shingles) Vaccine (1 of 2) 07/30/1999 COVID-19 Vaccine ( - 2023-2 5 season) 2023 RSV Vaccine 60 years and old er and Patients (1 - 1-dose 75+ series) 2024 Hepatitis B Vaccines Aged Out No long er eligible based on patient's age to complete this topic
--- NOTE | 2024-04-06 09:52 | A.OFFVIS_ITS ---
Intake Vital Signs 04/06/24 09:06 04/06/24 09:55 Height 5 ft 4 in Weight 104 lb 4 oz BMI 17.9 17.9 BP 108/66 Blood Pressure Location Rt brachial Position Sitting Respiration 12 Pulse 76 Pulse Source Pulse Oximeter Temp 97.1 F Temp Source Oral Pulse Oximetry (%) 98 Oxygen Delivery Method Room Air Intake Visit Reasons: Transfer / Care from Dr. Johnson Allergies codeine [CODEINE] Allergy (Mild, Verified 04/06/24 09:45) STOMACH UPSET Medication List - Last Reconciled 04/06/24 by ANNE FeldmanP- No Known Home Meds HPI HPI Comments History of Present Illness Details Here today for AWV. The Medicare Annual Wellness Visit (AWV) is a yearly appointment with a health professional to identify health risks and help reduce them and to create or update a personalized prevention plan. During a Medicare AWV, health professionals should also review any current opioid prescriptions, detect any cognitive impairment, and establish or update medical and family history. 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 Colon ...pending records Mammo 02/14/2024 DEXA: Osteopenia, declined addl screening PAP: aged out Vaccines: declined.. Tdap: declined Flu declined AAA screen: Echo ordered EKG: declined Specialists: Optho last September, appt 2024 Has cataracts bilat Derm annual survellience, no + findings per report Podiatry Visual Acuity: Y glasses active w optho annual exams Hearing Screening: WNL w/o aides ACP: Y HCP and DNR Dietary/Nutrition/Exercise Edu provided: Y During the course of the visit the patient was educated and counseled about appropriate screening and preventative services. Patient instructions were pr ovided to the patient in written or electronic format. I have reviewed and verified the above information. The patient is a 73-year-old female presenting to establish care: Dr Johnson - no records avail @ this time and address chronic medical conditions. She has a significant medical history of coronary artery disease, hepatic steatosis, and aortic dilation. The coronary artery disease is a long-standing condition, and the patient is managing it with regular monitoring. Her hepatic steatosis was noted in a past abdominal ultrasound, which she states was mild with no significant liver dysfunction. Aortic dilation was noted on a [address] scan without evidence of aneurysm at the time. She also has osteopenia diagnosed in the past, though she has opted for non-pharmacological management through exercise and diet. The patient reported a strong family history of dementia, with recent diagnoses of Alzheimer's in a brother and dementia in a younger sister. This history has made her vigilant about maintaining cognitive function through activities like crossword puzzles and diet management. She also discussed her left foot neuroma, which is being managed through regular podiatric care. 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 This condition occasionally causes dizziness upon standing, which she mitigates by rising slowly. 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 - Vigilant diet management due to gluten sensitivity; avoids processed foods and gluten. - Engages in regular exercise, including walking and cycling. - Does not smoke or consume alcohol. - Strong family connections with her elo sue and siblings, involved in their care. Exam: General: Well developed, well nourished, in no acute distress. Appears stated age. Head: Normocephalic, atraumatic. Eyes: Pupils are equal, round and reactive to light and accommodation. Conjunctivae are clear. Vision grossly normal. Ears: TMs clear AU, EACS WNL Nose: Patent, without discharge. Mouth: There are no ulcers or lesions noted. No inflammation, no post nasal drip, no plaques nor exudates. Neck: restricted ROM (baseline), no adenopathy or thyromegaly. Lungs: Clear to auscultation bilaterally. No rales, rhonchi or wheeze noted. Good air flow in all mayer. Heart: Regular rate and rhythm.No click, rubs or gallops are noted. 2/6 murmur LSB Abdomen: Bowel sounds present in all quadrants. The abdomen is soft, nontender, with no masses or organomegaly noted. No hernias are noted. Musculoskeletal: Joints are nontender, without swelling, redness, or effusions. Range of motion is observed to be normal. Pulses: Peripheral pulses are equal and palpable bilaterally - decreased Extremities: No clubbing, cyanosis nor edema is noted. Hairless Neurologic: Gait and station normal. Cranial Nerves 2-12 intact. Motor strength grossly symmetrical and intact. No sensory loss. Balance normal. Skin: No rashes, ulcers, or lesions noted. Turgor is good. Skin color is good. Hair and nails are without abnormalities. Psych: Normal eye contact, affect and mood appropriate, and normal interactions. Patient is alert and appropriate to context. Results - Labs: Calcium level at 9.3(2023) previ ous Vitamin D levels normal (2021) - Imagin chest CT scan noted aort ic dilation without aneurysm; abdominal ultrasound showed mild hepatic steatosis. - Previous mammogram and bone density sc an noted as normal with osteopenia. Discussion Notes I discussed with the patient the current management and monitoring of her chronic health conditions, including coronary artery disease and hepatic steatosis. We reviewed the importance of follow-up imaging for her aortic dilation to assess any changes. 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 We discussed medication options, including the risks and benefits of potential treatments. Declined further imaging at this time. For her family history of dementia, I emphasized the value of cognitive exercises and a healthy lifestyle, which she is already practicing. I also highlighted the significance of regular labs to monitor her vitamin D and cholesterol levels. We agreed on a follow-up echocardiogram to evaluate her cardiac murmur and aortic condition. Patient Instructions - Continue regular exercise and maintain a gluten-free and unprocessed diet. - Have blood drawn for cholesterol and v itamin D level assessment. - Monitor for any new symptoms, particul tree related to cardiac, neurological, and gastrointestinal systems. - Schedule and attend a follow-up echoca rdiogram. - Engage in cognitive activities to main tain mental acuity. Plan - Schedule an echocardiogram to assess c ardiac murmur and aortic dilation. - Obtain blood tests for cholesterol, vi tamin D, and A1c to monitor metabolic health. - Continue non-pharmacological managemen t of osteopenia with exercise and dietary measures. - Regular follow-up with podiatry for le ft foot neuroma. - Advise continued vigilance with cognit jeferson exercises and lifestyle modifications to manage family risk of dementia. - Recommend regular dermatology and opht halmology reviews to ensure skin and eye health remains stable. - Encourage utilization of patient miguel l for communication and access to results. - RTO in 4-6 weeks to fu on echo and lab s. Awv 1 year Patient was informed and verbally consented to the use of an ambient scribe for clinic note documentation during this visit. An additional 30 minutes was spent addressing the problem(s) noted at todays visit. This includes time spent before the visit reviewing the chart, time spent during the visit, and time spent after the visit on documentation reviewing laboratory results, diagnostic imaging, medications, performing a medically necessary evaluation, counseling on diagnoses, care coordination, ordering appropriate tests, ordering appropriate medications, review of tests performed by other providers, reporting test results with the patient, communication with other healthcare providers. COUNT INCLUDES THE [facility] Medical History (Updated 04/06/24 @ 10:25 by Indira Chacon [facility]) No pertinent past medical history Surgical History (Updated 04/06/24 @ 09:06 by Moisés Grimes MA) No pertinent past surgical history Family History (Updated 04/06/24 @ 09:06 by Moisés Grimes MA) Father Mental health disorder Dementia Stomach cancer Mother Mental health disorder Dementia Brother Alzheimer disease Maternal Grandmother Diabetes Son Thyroid disorder Social History (Updated 04/06/24 @ 09:03 by Moisés Grimes MA) Household Members: Children Both parents involved: No Caregiver staying overnight: No Housing: House Are you a primary resident care manager to a significant other at home: No Do you presently have visiting nurse or other home services: No 75 years or older and lives alone: No Alcohol intake: current Alcohol intake frequency: a few times a month Patient Tobacco Use Status: Never used Tobacco e-Cigarette/Vaping Use: Never Used Second Hand Smoke Exposure: No Questionnaire Medicare Wellness Checkup What [age]?: [age] What gender do you identify with?: female During the past 4 weeks, how much have you been bothered by emotional problems such as feeling anxious, depressed, irritable, sad or downhearted, and blue?: not at all During the past 4 weeks, has your physical & emotional health limited your social activities with family, friends, neighbors, or groups?: not at all During the past 4 weeks, how much bodily pain have you generally had?: no pain During the past 4 weeks, was someone available to help you if you needed & wanted help?: yes, as much as I wanted During the past 4 weeks, what was the hardest physical activity you could do for at least 2 minutes?: heavy Can you get to places out of walking distance without help? (For eg., can you travel alone on buses, taxis or drive your car?): Yes Can you go shopping for groceries or clothes without someone's help?: Yes Can you prepare your own meals?: Yes Can you do your housework without help?: Yes Because of any health problems, do you need the help of another person with your personal care needs such as eating, bathing, dressing or getting around the house?: No Can you handle your own money without help?: Yes During the past 4 weeks, how would you rate your health in general?: excellent During the past 4 weeks how have things been going for you?: very well; could hardly better Are you having difficulties driving your car?: no Do you always fasten your seat belt when you are in a car?: yes, usually During past 4 weeks, have you been bothered by the following: never: Falling or dizzy when standing up, Sexual problems?, Trouble eating well?, Teeth or denture problems?, Problems using the telephone? and Tiredness or fatigue? Have you fallen 2 or more times in the past year?: No Are you afraid of falling?: No Are you a smoker?: no During the past 4 weeks, how many drinks of wine, beer, or other alcoholic beverages did you have?: no alcohol at all Do you exercise for about 20 minutes 3 or more times a week?: yes, all the time Have you been given information to help with the following?: no: Hazards in your house that might hurt you? and no: Keeping track of your medications? How often do you have trouble taking medicines the way you have been told to take them?: I do not have to take medicine How confident are you that you can control & manage most of your health problems?: very confident What is your race?: White Activity of Daily Living Bathing - sponge bath, tub bath or shower: receives no assistance (gets in/out by self, if usual bathing means Dressing - getting clothes from closets & drawers, including inner/outer garments & fasteners.: gets clothes & gets completely dressed without help Toileting - going to the 'toilet room' for urine/bowel elimination & cleaning self/arranging clothes: goes to toilet room, cleans self, arranges clothes without help Transfer: moves in & out of bed and chair without help (may use support object) Continence: controls urination/bowel movements completely by self Feeding: feeds self without help Total Score: 0 Information obtained from: patient Using telephone: independent Traveling: independent Shopping: independent Preparing meals: independent Housework: independent Taking medicine: independent Managing money: independent PHQ-9 Over the last 2 weeks, how often have you been bothered by any of the following problems? 1. Little interest or pleasure in doing things: not at all 2. Feeling down, depressed, or hopeless: not at all 3. Trouble falling or staying asleep, or sleeping too much: not at all 4. Feeling tired or having little energy: not at all 5. Poor appetite or overeating: not at all 6. Feeling bad about yourself - or that you are a failure or have let yourself or your family down: not at all 7. Trouble concentrating on things, such as reading the newspaper or watching television: not at all 8. Moving or speaking so slowly that other people could have noticed. Or the opposite - being so fidgety or restless that you have been moving around a lot more than usual: not at all 9. Thoughts that you would be better off or of hurting yourself in some way: not at all Total score: 0 Depression Screening Interpretation: Negative Depression Screening Done: Yes 73031 - PHQ-9 Billing: Yes Source: Developed by Drs. Yakov Schultz, Justine Agustin, Pal Luu and colleagues, with an educational roberto from [employer]. Physical Exam Vital Signs: Last Vital Signs Temp 97.1 F 04/06/24 09:06 Pulse 76 04/06/24 09:06 Resp 12 04/06/24 09:06 BP 108/66 04/06/24 09:06 Pulse Ox 98 04/06/24 09:06 Oxygen Delivery Method Room Air 04/06/24 09:06 BMI result Body Mass Index 17.9 Assessment & Plan Assessment & Plan (1) Encounter for subsequent annual wellness visit (AWV) in Medicare patient: Code(s): Z00.00 - Encounter for general adult medical examination without abnormal findings (2) CAD (coronary artery disease): Comment: CAD (arteriosclerosis of the abdominal aorta noted on abdominal ultrasound August of 2023), Code(s): I25.10 - Atherosclerotic heart disease of [place] coronary artery without angina pectoris Qualifiers: Coronary Disease-Associated Artery/Lesion type: [place] artery [place] vs. transplanted heart: [place] heart Associated angina: without angina Qualified Code(s): I25.10 - Atherosclerotic heart disease of [place] coronary artery without angina pectoris (3) Hepatic steatosis: Comment: hepatic steatosis abd [place] August 2023 Code(s): K76.0 - Fatty (change of) liver, not elsewhere classified (4) Renal cyst: Comment: 2.5 cm mid pole left renal cyst benign, multiple L renal cysts - benign Abd [id number] Code(s): N28.1 - Cyst of kidney, acquired (5) Dilatation of aorta: Comment: mild dilatation of the distal aortic arch measuring up to 3.3 cm ( CTA of the chest September of 2020) Code(s): I77.819 - Aortic ectasia, unspecified site (6) Family history of Alzheimer disease: Code(s): Z82.0 - Family history of epilepsy and other diseases of the nervous system (7) DNR (do not resuscitate): Code(s): Z66 - Do not resuscitate (8) ACP (advance care planning): Code(s): Z71.89 - Other specified counseling (9) Lopez neuroma of left foot: Code(s): G57.62 - Lesion of plantar nerve, left lower limb (10) Screening for diabetes mellitus: Code(s): Z13.1 - Encounter for screening for diabetes mellitus (11) Cataract: Code(s): H26.9 - Unspecified cataract Qualifiers: Cataract type: age-related Age-related cataract type: nuclear Laterality: bilateral Qualified Code(s): H25.13 - Age-related nuclear cataract, bilateral (12) Cervical spinal stenosis: Code(s): M48.02 - Spinal stenosis, cervical region (13) Encounter to establish care: Code(s): Z76.89 - Persons encountering health services in other specified circumstances Plan . Orders: Orders CA echo transthoracic complete Today I25.10 - Atherosclerotic heart disease of [place] coronary artery without angina pectoris, I77.819 - Aortic ectasia, unspecified site Lipid Panel Today I25.10 - Atherosclerotic heart disease of [place] coronary artery without angina pectoris, I77.819 - Aortic ectasia, unspecified site, Z13.1 - Encounter for screening for diabetes mellitus Vitamin D 25-OH Total Today I25.10 - Atherosclerotic heart disease of [place] coronary artery without angina pectoris, I77.819 - Aortic ectasia, unspecified site, Z13.1 - Encounter for screening for diabetes mellitus Hemoglobin A1c Today I25.10 - Atherosclerotic heart disease of [place] coronary artery without angina pectoris, I77.819 - Aortic ectasia, unspecified site, Z13.1 - Encounter for screening for diabetes mellitus Patient Instructions: Health screenings for women You should visit your health care provider from time to time, even if you are healthy. The purpose of these visits is to: Screen for medical issues Assess your risk for future medical problems Encourage a healthy lifestyle Update vaccinations and other preventive care services Help you get to know your provider in case of an illness Information Even if you feel fine, you should still see your provider for regular checkups. These visits can help you avoid problems in the future. For example, the only way to find out if you have high blood pressure is to have it checked regularly. High blood sugar and high cholesterol levels also may not have any symptoms in the early stages. A simple blood test can check for these conditions. There are specific times when you should see your provider or receive specific health screenings. The [place] Preventive Services Task Force publishes a list of recommended screenings. Below are screening guidelines for women ages 18 to 39. BLOOD PRESSURE SCREENING Your blood pressure should be checked at least once every 3 to 5 years if: Your blood pressure is in the normal range (top number less than 120 mm Hg and bottom number less than 80 mm Hg) You don't have risk factors for high blood pressure Ask your provider if you need your blood pressure checked more often if: The top number is 120 to 129 mm Hg or the bottom number is 70 to 79 mm Hg You have diabetes, heart disease, kidney problems, are overweight, or have certain other health conditions You have a first-degree relative with high blood pressure You are Black You had high blood pressure during a If the top number is 130 mm Hg or greater or the bottom number is 80 mm Hg or greater, this is considered stage 1 hypertension. Schedule an appointment with your provider to learn how you can reduce your blood pressure. Watch for blood pressure screenings in your area. Ask your provider if you can stop in to have your blood pressure checked. BREAST CANCER SCREENING Experts do not agree about the benefits of breast self-exams in finding breast cancer or saving lives. Talk to your provider about what is best for you. A screening mammogram is not recommended for most women under age 40. Your provider may discuss and recommend mammograms, MRI scans, or ultrasounds if you have an increased risk for breast cancer, such as: A mother or sister who had breast cancer at a young age (most often starting screening earlier than the age the close relative was diagnosed) You carry a high-risk genetic marker CERVICAL CANCER SCREENING Cervical cancer screening should start at age 21 years unless your provider advises otherwise. After the first test: Women ages 21 through 29 should have a Pap test every 3 years. Exoprts do not agree on whether HPV testing is recommended for this age group. Women ages 30 through 65 should be screened with either a Pap test every 3 years or the HPV test every 5 years or both tests every 5 years (called cotesting ). Women who have been treated for precancer (cervical dysplasia) should continue to have Pap tests for 20 years after treatment or until age 65, whichever is longer. If you have had your uterus and cervix removed (total hysterectomy), and you have not been diagnosed with cervical cancer or precancer (high grade cervical neoplasia), you do not need cervical cancer screening. CHOLESTEROL SCREENING Cholesterol screening should begin at: Age 45 for women with no known risk factors for coronary heart disease Age 20 for women with known risk factors for coronary heart disease Repeat cholesterol screening should take place: Every 5 years for women with normal cholesterol levels More often if changes occur in lifestyle (including weight gain and diet) More often if you have diabetes, heart disease, kidney problems, or certain other conditions DIABETES SCREENING You should be screened for diabetes starting at age 35 and then repeated every 3 years if you have no risk factors for diabetes. Screening may need to start earlier and be repeated more often if you have other risk factors for diabetes, such as: You have a first degree relative with diabetes. You are overweight or have obesity. You have high blood pressure, prediabetes, or a history of heart disease. Screening for diabetes should be done if you are planning to become and you are overweight and have other risk factors such as high blood pressure. DENTAL EXAM Go to the dentist once or twice every year for an exam and cleaning. Your dentist will evaluate if you need more frequent visits. EYE EXAM Have an eye exam every 5 to 10 years before age 40. If you have vision problems, have an eye exam every 2 years or more often if recommended by your provider. You should have an eye exam that includes an examination of your retina (back of your eye) at least every year if you have diabetes. IMMUNIZATIONS Commonly needed vaccines include: Flu shot: get one every year. COVID-19 vaccine: ask your provider what is best for you. Tetanus-diphtheria and acellular pertussis (Tdap) vaccine: have one at or after age 19 as one of your tetanus-diphtheria vaccines if you did not receive it as an adolescent. Tetanus-diphtheria: have a booster (or Tdap) every 10 years. Varicella vaccine: receive 2 doses if you never had chickenpox or the varicella vaccine. Hepatitis B vaccine: receive 2, 3, or 4 doses, depending on your exact circumstances. Measles, mumps, and rubella (MMR) vaccine: receive 1 to 2 doses if you are not already immune to MMR. Your provider can tell you if you are immune. Ask your provider about the human papillomavirus (HPV) vaccine if: You have not received the HPV vaccine in the past You have not completed the full vaccine series (you should catch up on this shot) Ask your provider if you should receive other immunizations if you have certain health problems that increase your risk for some diseases such as pneumonia. INFECTIOUS DISEASE SCREENING Women who are sexually active should be screened for chlamydia and gonorrhea up until age 25. Women 25 years and older should be screened for chlamydia and gonorrhea if at high risk. Screening for hepatitis C: All adults ages 18 to 79 should get a one-time test for hepatitis C. people should be screened at every . Screening for human immunodeficiency virus (HIV): All people ages 15 to 65 should get a one-time test for HIV. Depending on your lifestyle and medical history, you may also need to be screened for infections such as syphilis and HIV, as well as other infections. PHYSICAL EXAM All adults should visit their provider from time to time, even if they are healthy. The purpose of these visits is to: Screen for disease Assess your risk of future medical problems Encourage a healthy lifestyle Update your vaccinations and other preventive care services Maintain a relationship with a provider in case of an illness Your height, weight, and BMI should be checked at every exam. During your exam, your provider may ask you about: Depression and anxiety Diet and exercise Alcohol and tobacco use Safety issues, such as using seat belts, smoke detectors, and intimate partner violence Your medicines and risk for interactions SKIN SELF-EXAM Your provider may check your skin for signs of skin cancer, especially if you're at high risk, such as if you: Have had skin cancer before Have close relatives with skin cancer Have a weakened immune system OTHER SCREENING Talk with your provider about colon cancer screening if you have a strong family history of colon cancer or polyps, or if you have had inflammatory bowel disease or polyps yourself. Routine bone density screening of women under 40 is not recommended. Walk-In Care (Urgent Care): We Make it Easy Walk-in for urgent medical issues such as: ? Seasonal Allergies ? Insect Bites ? Cough ? Diarrhea ? Acute Asthma Attacks ? Back, Knee or Joint Pain ? Ear Infection ? Fever without a Rash ? Headaches ? Nausea ? [facility], Rash or Skin Irritation ? Sore Throat ? Sports Physicals ? Vomiting Most insurances are accepted. Patients do not need to be part of the [facility] to seek care at the walk-in clinic. Locations [facility] Wolfgang Rodriguez, [place] [address] ? [phone] [facility] Walk-In Care in [place] provides services to ages 18 and over. Open Tuesday-Tuesday: 8 a.m. to 5 p.m. and Tuesday: 9 a.m. to 3 p.m.* *Hours may vary due to staffing availability. To confirm Walk-In Care hours in [place], please call [phone]. [address] [facility], [place] [address] ? [phone] [facility] Walk-In Care in [place] provides services to ages 12 and over. Open Tuesday-Tuesday: 8 a.m. to 5 p.m. Hours may vary due to staffing availability. To confirm Walk-In Care hours in [place], please call [phone]. LABORATORY SERVICES: [facility] Lab ? Primary Location [address] [place] [address] Tuesday through Tuesday 6:00 AM ? 5:00 PM Tuesday 7:00 AM ? 11:00 AM* [phone] The [facility] Lab is centrally located near the front entrance of the [facility] for easy outpatient access. Convenient parking is provided for outpatients. *Hours may vary due to staffing availability. To confirm Laboratory hours for an y location, please call [phone]. Offsite Location For your convenience, we offer offsite laboratory draw stations at the following locations: [address] [place] [address] ? [address], [address] Tuesday through Tuesday 7:30 AM ? 1:00 PM* [phone] *Hours may vary due to staffing availability. To confirm Laboratory hours for any location, please call [phone]. [place] ? [address] Tuesday through Tuesday 6:00 AM ? 3:30 PM* Tuesday 6:30 AM ? 3 PM* [phone] *Hours may vary due to staffing availability. To confirm Laboratory hours for any location, please call [phone] [place] [address] Tuesday through Tuesday 7:30 AM ? 4:00 PM* [phone] *Hours may vary due to staffing availability. To confirm Laboratory hours for any location, please call [phone] [place] [address] Tuesday through 9:00 AM ? 4:00 PM* *Hours may vary due to staffing availability. To confirm Laboratory hours for any location, please call [phone]. Appointments are not necessary. Walk-ins are welcome. Like all the departments throughout the [facility], our Lab undergoes frequent reviews to ensure the quality and accuracy of test results, and our staff takes special pride in its status as a nationally accredited facility. Patient Portal: ONE PATIENT. ONE RECORD. BETTER CARE. [facility] has a fully integrated, cutting- edge mobile electronic health information system that has revolutionized the way we care for our patients and manage our organization. This system improves communication and coordination enabling us to provide safe, higher-quality care, and an overall positive experience for staff and patients. Our first priority, as always, is to deliver the highest quality care possible. The system is running in the background supporting that priority. This portal is for all [facility] services and practices. If you are experiencing any technical difficulties with enrolling or logging into the Patient Portal please complete the [facility] Patient Portal Technical Support Form. [facility] now offers a new secure on-line interactive tool for patients to review their health information ? ?Patient Portal. This interactive web portal will enable patients and their families to take an active role in their care by providing easy, secure access to their health information via the internet. The Patient Portal provides patients with instant access to their health information, including laboratory results, medications, allergies, demographic information, visit history, and more. In addition to managing their own care, parents and health care proxies with authorized consent will appreciate the ability to access the records of those individuals for whom they provide care. Please note: if you wish to gain access (Proxy) to another patient?s portal, you will be required to come to the Medical Records Department in person at [facility]. Both the patient giving proxy access and the proxy will need to provide photo identification and complete the appropriate authorization. The Patient Portal also allows track their appointments online. The [facility] Patient Portal also saves patients time by allowing them to submit updates to their demographic and contact information prior to their visits. Portal email notifications will also alert patients to any new activity on their portal, such as test results and new appointments. In order to initially enroll in the [facility] Patient Portal, you will need to enter some required information including the following: * your [facility] Medical Record number * your personal home email address * name * date of Please note: In order to enroll in the [facility] Patient Portal, we need to have your email address on file in your electronic medical record. ?The email address needs to be specific for one person (yourself) in order for your Portal enrollment to be successful. ?You can update your email address in person with our Registration staff when you are registering for a hospital visit. ?Otherwise, you will need to come to the Health Information Management (Medical Records) Department at [facility]. ?We are open from Tuesday ? Tuesday from 7:30 a.m. ? 4:30 p.m. ?You will be required to present a photo id. Once you have successfully enrolled in the Patient Portal, you will receive a one-time user id and password for the Portal, sent to your email address. ?This will allow you to log into the Patient Portal within 99 hrs and reset your own logon id and password, and define personal security questions. ?Once your permanent login and password have been set, you can log into the [facility] Patient Portal at any time via the blue button above or from the Portal Logon button on any page of the [facility] website. [facility] and [facility] encourage all of our patients to enroll in Patient Portal as it presents a valuable opportunity for patients and their families to actively participate in their care and stay healthy Welcome to [facility]. ?We look forward to working with you. Quality Reporting (2019) Adult ([facility] 138/04/28/68) Smoking risk assessment performed?: Yes Patient Tobacco Use Status: Never used Tobacco Depression screening performed: Yes Screen Results: Yes Negative screen Recommended changes not done: EKG Patient refused: Yes Systolic BP not done?: No Diastolic BP not done?: No Body Mass Index: 17.9 BMI screening not done: No Sexual Activity Screening (CMS 153) Sexually active?: No Immunizations (CMS 147, 117) Annual Influenza Vaccine: No Flu Vaccine not done: patient reason Measles Antibody Test: No Mumps Antibody Test: No Rubella Antibody Test: No Varicella Antibody Test: No Anti Hepatitis A IgG Antigen test: No Anti Hepatitis B Virus Surface Ab test: No Fall Risk Screening (CMS 139) Last assessed Fall Risk: 04/06/24 Fall risk assessment: No Falls in past year Dementia Assessment (CMS 149) Cognitive assessment recorded: Yes Assessment of cognition with standardized tool: Yes (05/04 6 CIT delayed recall ) Depression/Bipolar (159/160/161/177) PHQ-9: Total score: 0 Ophthalmol:Cataracts Visual Acuity (133) Visual acuity exam performed: Yes (cataracts eye exam September 2023 ) Coding Level of Care Code Medicare Subsequent (G0439) Est Pt Level 4 (75874) Diagnoses Encounter for subsequent annual wellness visit (AWV) in Medicare patient Z00.00 Coronary artery disease involving [place] coronary artery of [place] heart without angina pectoris I25.10 Coronary Disease-Associated Artery/Lesion type: [place] artery [place] vs. 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 Screening for diabetes mellitus Z13.1 Age-related nuclear cataract of both eyes H25.13 Cataract type: age-related Age-related cataract type: nuclear Laterality: bilateral Cervical spinal stenosis M48.02 Encounter to establish care Z76.89 CPT Codes Advance Care Planning - Time spent: 1-15 minutes, not on file ([id number]) Additional Codes PHQ-9 - 84017 - PHQ-9 Billing: Yes ([id number]) Advance Care Planning Advance Care Planning discussion: Exists, not on file Date of discussion: 04/06/24 Who was present: self Forms completed: Health Care Proxy, MOLST, Comfort care/DNR and Living will Time spent: 1-15 minutes, not on file Actual minutes spent: 5
[2024-04-06 09:55] VITALS: BMI 17.9
== END 2024-04-06 10:14 | disposition home or self-care (01) ==
PROVIDERS: PCP Nurse Practitioner Family; Visit Provider Nurse Practitioner Family
DX: Z00.00 Encounter for general adult medical examination without abnormal findings (principal); I25.10 Atherosclerotic heart disease of native coronary artery without angina pectoris; I77.819 Aortic ectasia, unspecified site; K76.0 Fatty (change of) liver, not elsewhere classified; N28.1 Cyst of kidney, acquired; Z82.0 Family history of epilepsy and other diseases of the nervous system; Z66 Do not resuscitate; Z71.89 Other specified counseling; G57.62 Lesion of plantar nerve, left lower limb; Z13.1 Encounter for screening for diabetes mellitus; H25.13 Age-related nuclear cataract, bilateral; M48.02 Spinal stenosis, cervical region

== ENCOUNTER 2024-04-06 10:10 | Outpatient (REF) | payer MEDICARE, OTHER, SELFPAY ==
--- OUTSIDE RECORDS SUMMARY | 2024-04-06 10:51 | XMS_ITS | Clinical Summary ---
Author Organization [facility] Address [address] [place] [address] Care Team Providers Care Rubber Calender Helper Name Role Phone Unavailable Primary Care Provider [...]
[2024-04-06 12:48] LABS: Estimated Average Glucose 94 mg/dL; Hemoglobin A1C 113.7271 umol/L; Hemoglobin A1c % 4.9 % (<6.0); Total Hemoglobin (HGBA1C) 3837.3844 umol/L
[2024-04-06 13:13] LABS: Cholesterol 226 mg/dL (<200); HDL Cholesterol 85 mg/dL (>40); LDL Cholesterol Calculated 134 mg/dL (<100); Triglycerides 38 mg/dL (<150)
[2024-04-06 13:17] LABS: Vitamin D 25-OH Total 78.5 ng/mL (>30)
== END 2024-04-06 10:11 | disposition home or self-care (01) ==
LOC: HO.WFDLDS 10:10
PROVIDERS: Visit Provider Nurse Practitioner Family
DX: Z00.00 Encounter for general adult medical examination without abnormal findings (principal); I25.10 Atherosclerotic heart disease of native coronary artery without angina pectoris; K76.0 Fatty (change of) liver, not elsewhere classified; N28.1 Cyst of kidney, acquired; I77.819 Aortic ectasia, unspecified site; G57.62 Lesion of plantar nerve, left lower limb; H25.13 Age-related nuclear cataract, bilateral; M48.02 Spinal stenosis, cervical region; M85.80 Other specified disorders of bone density and structure, unspecified site; Z82.0 Family history of epilepsy and other diseases of the nervous system; Z66 Do not resuscitate; Z71.89 Other specified counseling; Z76.89 Persons encountering health services in other specified circumstances; Z13.1 Encounter for screening for diabetes mellitus
CPT/HCPCS: 36415; 80061; 82306; 83036; 96127; 99212

== ENCOUNTER → 2024-04-20 09:49 | Outpatient (REF) | payer MEDICARE, OTHER, SELFPAY ==
--- NOTE | 2024-04-20 09:52 | CA_ITS ---
Transthoracic Echocardiogram Patient (Last, First, Middle): Doris Lowry B Gender: Female Date of : 1950 Age: 73 Procedure Date: 04/20/2024 Procedure Type: Transthoracic Echocardiogram Location: OP Height: 162.56 cm Weight: 47.17 kg BSA: 1.48 m2 Heart Rate: 64 bpm BP: 108 / 66 mmHg Video Software Engineer: SB Referring MD: Indira Chacon [facility]- Beauty Sales Advisor: Lamonte Gallagher MD Symptoms: I77.819 - Aortic ectasia, unspecified site Study Quality: Technically Difficult ECG Rhythm: Sinus Conclusions: - 1. Hyperdynamic LV ejection fraction greater than 70% with grade 1 diastolic dysfunction 2. Mild aortic regurgitation 3. Normal RV systolic pressure 4. No gross pericardial effusion Findings Procedure Information Contrast agent, definity, is being given per protocol without apparent complications. The quality of the study was technically difficult. The study quality is limited by lung artifact. Left Ventricle Normal left ventricular cavity size. There is normal left ventricular wall thickness. The left ventricular systolic function is hyperdynamic. The visually estimated ejection fraction is >70%. Spectral Doppler is indicative of an impaired relaxation filling pattern. E/E prime ratio is <8, consistent with normal filling pressures. Evidence suggests grade I (mild) diastolic dysfunction. Right Ventricle Normal right ventricular cavity size and systolic function. Atria Both atria are normal in size. There is no evidence of interatrial shunt. Aortic Valve Normal aortic valve structure and function. There is no aortic valve stenosis. There is mild aortic valve regurgitation. Mitral Valve Normal mitral valve structure and function. There is trace mitral valve regurgitation. There is no mitral valve stenosis. Pulmonic Valve The pulmonic valve is likely normal. There is mild pulmonic valve regurgitation. Tricuspid Valve Normal tricuspid valve structure. There is trace tricuspid valve regurgitation. The right ventricular systolic pressure is normal. The right ventricular systolic pressure is 22 mmHg. Normal right atrial pressure. There is no evidence of pulmonary hypertension. Great Vessels All visible segments of the aorta are normal in size. The pulmonary artery was not well visualized. There is no dilatation of the ascending aorta measuring 3.00 cm. Venous The inferior vena cava is normal in size and collapses greater than 50% with inspiration. Pericardium/Pleural There is no evidence of pericardial effusion. Prior Study Comparison No prior study available for comparison. Measurements 2D Linear Measurements IVSd: 0.83 0.6-0.9/0.6-1.0 cm LVIDd: 4.13 3.9-5.3/4.2-5.9 cm LVIDd Index: 2.79 2.4-3.2/2.2-3.1 cm/m2 LVIDs: 2.64 2.0-3.6 cm LVPWd: 0.62 0.7-1.1 cm LA Diam: 2.60 2.7-3.8/3.0-4.0 cm LAIDs Index: 1.76 1.5-2.3 cm/m2 LV Mass: 107.23 67-162/88-224 g LV Mass Index: 72.46 43-95/49-115 g/m2 LVOT Diam: 1.80 3.0+(-)1.3 cm 2D Systolic Function EF 4C: 78.00 >55% EF 2C: 73.40 >55% EF BiP: 75.40 >55% Mitral Valve MV Pk E: 0.90 MV PK A: 0.70 MV Decel Time: 170.00 E/A: 1.30 E'Medial: 6.09 E/E' Med: 14.80 PHT: 50.00 MVA PHT: 4.40 Decel Quay: 5.29 Aortic Valve AoV Pk Thuan: 1.04 AoV Pk Grad: 4.00 BERKLEY: 2.28 AI Pk Thuan: 4.84 AI Quay: 2.61 LVOT LVOT Pk Thuan: 0.86 LVOT Mn Thuan: 0.64 LVOT VTI: 0.20 LVOT Pk Grad: 3.00 LVOT Mn Grad: 2.00 LVOT Diam: 1.80 LVOT Area: 2.54 Diastolic Function MV Pk E: 0.90 MV Pk A: 0.70 E/A: 1.30 E'Medial: 6.09 E/E' Med: 14.80 Right Ventricle TAPSE (mm): 20.00 TVS' Thuan: 16.60 Tricuspid Valve TR Pk Thuan: 2.17 TR Pk Grad: 19.00 RA Press: 3.00 RVSP: 22.00 Great Vessels Aorta Sinus of Valsalva: 2.70 2.0-3.5 cm Ao Asc: 3.00 2.1-3.4 cm Pulmonary Valve PV Pk Thuan: 0.98 Peak PV Grad: 4.00 DC Pk Thuan: 1.83 Updated in Other Vendor System with Status of Final Lamonte Gallagher MD electronically signed on 04/21/2024 12:30:28 PM with status of Final
--- OUTSIDE RECORDS SUMMARY | 2024-04-20 10:21 | XMS_ITS | Clinical Summary ---
Author Organization [facility] Address [address] [place] [address] Care Team Providers Care Technology Resource Teacher Name Role Phone Unavailable Primary Care Provider [...]
--- OUTSIDE RECORDS SUMMARY | 2024-04-20 10:21 | XMS_ITS | Patient Health Record ---
Author Organization [facility] Address [address] [facility] [place] [address] Care Team Providers Care Blemish Remover Name Role Phone David Salazar MD Primary Care Provider Unavaila ble Black, Poly Unavailable [phone] Allergies Allergen (clinical drug ingredient) Drug/Non Drug Allergy documented on EMR Reaction Allergy Type Onset Date Status codeine Codeine vomiting Drug Allergy Active Reason For Referral No Information Medications Medication SIG (Take, Route, Fr equency, Duration) Notes Start Date End Date Status Omeprazole 20 MG 1 capsule 30 minutes before morning meal Orally Once a day for 30 day(s) Active Walking Boot/Pneumatic As directed Wear Daily for Until further notice 11/02/2021 Active Social History Tobacco Use: Social History Observation Description Date Details (start date - stop date) Never Smoker NA - NA Tobacco Use/Smoking Question Answer Notes Are you a: nonsmoker Alcohol Screen Question Answer Notes Did you have a drink containing alcohol in the p ast year? No Points 0 Interpretation Negative Tobacco use other than smoking: Question Answer Notes Are you an other tobacco user? 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 [address] [place] [address] [id number] Doris Lowry Self - patient is the insured Medical (General) History Medical History History ICD Code Diverticulosis Reflux Lyme disease Measles Mumps Chicken pox Surgical History Surgery Date(Month/Year)
== END ==
LOC: HO.CARD 09:49
PROVIDERS: PCP Nurse Practitioner Family; Visit Provider Nurse Practitioner Family
DX: I77.819 Aortic ectasia, unspecified site (principal); I25.10 Atherosclerotic heart disease of native coronary artery without angina pectoris
CPT/HCPCS: 93306; Q9957

== ENCOUNTER → 2024-04-20 09:52 | Outpatient (BNV) | payer MEDICARE, OTHER, SELFPAY | PROVIDERS: PCP Nurse Practitioner Family; Visit Provider Internal Medicine Cardiovascular Disease | DX: I35.1 Nonrheumatic aortic (valve) insufficiency (principal); I51.89 Other ill-defined heart diseases | CPT/HCPCS: 93306 ==

== ENCOUNTER 2024-05-15 08:45 | Outpatient (AMB) | payer MEDICARE, OTHER, SELFPAY ==
--- NOTE | 2024-05-15 08:58 | A.OFFPC_ITS ---
Vital Signs 05/15/24 09:07 Height 5 ft 4 in Weight 104 lb 4 oz BMI 17.9 BP 118/68 Blood Pressure Location Rt brachial Position Sitting Respiration 12 Pulse 76 Pulse Source Pulse Oximeter Temp 96.9 F Temp Source Oral Pulse Oximetry (%) 97 Oxygen Delivery Method Room Air Intake Visit Reasons: weeks fu echo/lab results Intake Note: follow up to review labs and echo results Pharmacovigilance Specialist Required: No Allergies codeine [CODEINE] Allergy (Mild, Verified 05/15/24 08:59) STOMACH UPSET Tobacco use date assessed: 05/15/24 Fall risk assessment: No Falls in past year Last assessed Fall Risk: 05/15/24 Dental Screening Dental Screen Date: 05/15/24 Did you have a dental visit in the last 12 months?: Yes Did you have a dental problem in the last 6 months where you did not have access to dental care?: No Was dental information given to patient?: Patient has dentist HPI HPI Comments History of Present Illness Details 73-year-old female with CAD (arterioscle rosis of the abdominal aorta noted on abdominal ultrasound August of 2023), hepatic steatosis, 2.5 cm mid pole left renal cyst benign,mild dilatation of the distal aortic arch measuring up to 3.3 cm ( CTA of the chest September of 2020), osteopenia, cataracts, spinal stenosis , left foot neuroma., family hx of Alzheimers Dz 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 Colon ...pending records Mammo 02/14/2024 DEXA: Osteopenia, declined addl screening PAP: aged out Vaccines: declined.. Tdap: declined Flu declined AAA screen: Echo ordered EKG: declined Specialists: Optho last September, appt 2024 Has cataracts bilat Derm annual survellience, no + findings per report Podiatry Here today to follow up on lab results as well as her echocardiogram. Echocardiogram was done to evaluate the finding on CTA in 2020 mild aortic dilation. She offers no cardiac complaints. Results of the echocardiogram in t he labs are reviewed below. She was complaining of mild diverticulosis symptoms caused by eating and she has reduced her diet done to clear liquids and her symptoms are improving. She reports that she was on a required antibiotics for her for flare several years ago she manages with lifestyle modifications with good effects. Results: Labs from 04/06/2024 show no hemoglobin A1c of 4.9%, total cholesterol 226, LDL 134, HDL 85, triglycerides 38, normal vitamin-D at 78.5 Echo 04/2024 There is no dilatation of the ascending aorta measuring 3.00 cm. - 1. Hyperdynamic LV ejection fraction g reater than 70% with grade 1 diastolic dysfunction 2. Mild aortic regurgitation, trace mitr al & pulmonic valve regurgitation. 3. Normal RV systolic pressure 4. No gross pericardial effusion Exam: General: Well developed, well nourished, in no acute distress. Appears stated age. Head: Normocephalic, atraumatic. Eyes: Pupils are equal, round and reactive to light and accommodation. Conjunctivae are clear. Vision grossly normal. Lungs: Clear to auscultation bilaterally. No rales, rhonchi or wheeze noted. Good air flow in all mayer. Heart: Regular rate and rhythm.No click, rubs or gallops are noted. 2/6 murmur LSB Abdomen: Bowel sounds present in all quadrants. The abdomen is soft, nontender, with no masses or organomegaly noted. No hernias are noted. Pulses: Peripheral pulses are equal and palpable bilaterally - decreased Extremities: No clubbing, cyanosis nor edema is noted. Hairless Plan: No additional follow up needed for her echocardiogram. Labs are stable. Cont dietary mods for abd sx, if worsened advised to come to walk in. Return to office in March for annual wellness visit sooner as needed. Total time spent caring for the patient today was 30 minutes. This includes time spent before the visit reviewing the chart, time spent during the visit, and time spent after the visit on documentation, reviewing laboratory results, diagnostic imaging, medications, performing a medically necessary evaluation, counseling on diagnoses, care coordination, ordering appropriate tests, ordering appropriate medications, review of tests performed by other providers, reporting test results with the patient, communication with other healthcare providers. [facility] Medical History No pertinent past medical history Surgical History No pertinent past surgical history Family History Father Mental health disorder Dementia Stomach cancer Mother Mental health disorder Dementia Brother Alzheimer disease Maternal Grandmother Diabetes Son Thyroid disorder Social History (Updated 05/15/24 @ 09:00 by Moisés Panchal MA) Household Members: Children Both parents involved: No Caregiver staying overnight: No Housing: House Are you a primary home care and home health aides teacher to a significant other at home: No Do you presently have visiting nurse or other home services: No 75 years or older and lives alone: No Alcohol intake: current Alcohol intake frequency: a few times a month Patient Tobacco Use Status: Never used Tobacco e-Cigarette/Vaping Use: Never Used Second Hand Smoke Exposure: No service: No Current occupational status: retired Cognitive needs: No Hearing needs: No Vision needs: No Questionnaire PHQ-9 Over the last 2 weeks, how often have you been bothered by any of the following problems? 01842 - PHQ-9 Billing: Patient declined-do not bill Source: Developed by Drs. Yakov Schultz, Justine Agustin, Pal Luu and colleagues, with an educational roberto from [employer]. Thrive Questionnaire Date Thrive assessed: 05/15/24 I am a: Patient What is your living situation today?: I have a steady place to live Within the past 12 months, did the food you bought not last and you didn't have the money to get more?: Never true Within the past 12 months, did you worry whether your food would run out before you got money to buy more?: Never true Do you have trouble paying for medicines?: No Do you have trouble getting transportation to medical appointments?: No Do you have trouble paying your heating and electricity bill?: No Do you have trouble taking care of your child, family member or friend?: No Do you have trouble with day-to-day activities such as bathing, preparing meals, shopping, managing finances, etc.?: No Are you currently unemployed and looking for a job?: No Are you interested in more education?: No Please select the resources that you would like help with: None Currently or been in a relationship where the following occur: No concerns reported THRIVE Score: 0 CANDI-7 AMB Questionnaire CANDI-7 Date CANDI - 7 assessed: 05/15/24 Feeling nervous, anxious, or on edge: 0 = Not at all Not being able to stop or control worryin = Not at all Worrying too much about different things: 0 = Not at all Trouble relaxin = Not at all Being so restless that it is hard to sit still: 0 = Not at all Becoming easily annoyed or irritable: 0 = Not at all Feeling afraid as if something awful might happen: 0 = Not at all Total CANDI-7 score (0-4 normal; 5-9 mild; 10-14 moderate; 15-21 severe): 0 Source: Developed by Drs. Yakov Schultz, Justine Agustin, Pal Luu and colleagues, with an educational roberto from [employer]. CANDI-7 Assessment Billing CANDI-7 Assessment Tool: CANDI-7 Assessment 63895 Physical exam (Primary Care) Vital Signs: Last Vital Signs Temp 96.9 F 05/15/24 09:07 Pulse 76 05/15/24 09:07 Resp 12 05/15/24 09:07 BP 118/68 05/15/24 09:07 Pulse Ox 97 05/15/24 09:07 Oxygen Delivery Method Room Air 05/15/24 09:07 BMI result Body Mass Index 17.9 Tobacco/Smoking Status: Tobacco use Status Tobacco use date assessed 05/15/24 05/15/24 08:59 Patient Tobacco Use Status Never used Tobacco 05/15/24 09:00 e-Cigarette/Vaping Use Never Used 05/15/24 09:00 Thrive Assessment: Date of Thrive Assessment Date Thrive assessed 05/15/24 05/15/24 08:59 Currently or been in a relationship where the following occur: No concerns reported Coding Level of Care Code Est Pt Level 4 (46463) Complex EM visit Add On G2211 Diagnoses Dilatation of aorta I77.819 Diverticulosis K57.90 Additional Codes CANDI-7 Assessment Billing - CANDI-7 Assessment Tool: CANDI-7 Assessment 15414 ([id number]) Assessment & Plan Assessment & Plan (1) Dilatation of aorta: Comment: mild dilatation of the distal aortic arch measuring up to 3.3 cm ( CTA of the chest September of 2020) Echo 04/2024 There is no dilatation of the ascending aorta measuring 3.00 cm. - 1. Hyperdynamic LV ejection fraction greater than 70% with grade 1 diastolic dysfunction 2. Mild aortic regurgitation, trace mitral & pulmonic valve regurgitation. 3. Normal RV systolic pressure 4. No gross pericardial effusion Code(s): I77.819 - Aortic ectasia, unspecified site Category: Medical (2) Diverticulosis: Code(s): K57.90 - Diverticulosis of intestine, part unspecified, without perforation or abscess without bleeding Category: Medical Plan .
[2024-05-15 09:07] VITALS: BP 118/68; PULSE 76; RESP 12; TEMP 36.1; O2SAT 97; BMI 17.9
--- OUTSIDE RECORDS SUMMARY | 2024-05-15 09:33 | XMS_ITS | Patient Health Record ---
Author Organization [place] 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 confirmed Problem 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 Problem 155550900 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 Plan Of Treatment Pending Test Test Name Order Date X ray : Foot, left 3V 11/02/2021 62743, J0702- Neuroma/Injection 12/08/19 63121, J0702- Neuroma/Injection 06/11/19 Insurance Providers Payer Name Payer Address Payer Phone Subscriber Number Group Number Insured Name Patient Relationship to Insured Coverage Start Date Coverage End Date Medicare National Govt Svcs Inc [address] [place] [address] [id number] Doris Lowry Self - patient is the insured [employer] [facility] [address] [place] [address] [id number] Doris Lowry Self - patient is the insured Medical (General) History Medical History History ICD Code Diverticulosis Reflux Lyme disease Measles Mumps Chicken pox Surgical History Surgery Date(Month/Year)
--- OUTSIDE RECORDS SUMMARY | 2024-05-15 09:33 | XMS_ITS | Clinical Summary ---
Author Organization [facility] Address [address] [place] [address] Care Team Providers Care Specimen Collector Name Role Phone Unavailable Primary Care Provider [...]
== END 2024-05-15 09:57 | disposition home or self-care (01) ==
LOC: HO.HMCFM 08:46
PROVIDERS: PCP Nurse Practitioner Family; Visit Provider Nurse Practitioner Family
DX: I77.819 Aortic ectasia, unspecified site (principal); K57.90 Diverticulosis of intestine, part unspecified, without perforation or abscess without bleeding

== ENCOUNTER → 2024-05-15 08:45 | Outpatient (BNVA) | payer MEDICARE, OTHER, SELFPAY | PROVIDERS: PCP Nurse Practitioner Family; Visit Provider Nurse Practitioner Family | DX: I77.819 Aortic ectasia, unspecified site (principal); K57.90 Diverticulosis of intestine, part unspecified, without perforation or abscess without bleeding | CPT/HCPCS: 96127; 99212 ==

== ENCOUNTER 2025-02-19 07:48 | Outpatient (REF) | payer MEDICARE, OTHER, SELFPAY ==
--- NOTE | ~2025-02-19 | MM_ITS ---
EXAMINATION: MM SCREENING DIGITAL BREAST TOMOSYNTHESIS, BILATERAL CLINICAL INFORMATION: Screening. Asymptomatic. COMPARISON: Mammography: Comparison is made with available priors TECHNIQUE: Digital breast mammography with tomosynthesis is performed in both the craniocaudal and mediolateral oblique views along with computer-aided detection (CAD). FINDINGS: There are scattered areas of fibroglandular density. There are no significant masses, abnormal calcifications, or other abnormalities. MM/MM tomosynthesis screening BI IMPRESSION: No mammographic evidence of malignancy. ASSESSMENT: BI-RADS Category 1: Negative RECOMMENDATION: Routine annual mammography screening. 1 year F/U This examination should not preclude the clinical evaluation of a suspicious palpable abnormality. This patient's information was entered into a reminder system with a target due date for their next mammogram. Electronically signed by: Shalini Mirza DO 02/20/2025 05:02 PM ISMAEL
--- OUTSIDE RECORDS SUMMARY | 2025-02-19 07:57 | XMS_ITS | Patient Health Record ---
Author Organization [facility] Address [address] [facility] [place] [address] Care Team Providers Care Color Maker Dyer Name Role Phone David Salazar MD Primary Care Provider Unavaila ble Black, Poly Unavailable [phone] Allergies Allergen (clinical drug ingredient) Drug/Non Drug Allergy documented on EMR Reaction Allergy Type Onset Date Status codeine Codeine vomiting Drug Allergy Active Reason For Referral No Information Medications Medication SIG (Take, Route, Fr equency, Duration) Notes Start Date End Date Status Omeprazole 20 MG 1 capsule 30 minutes before morning meal Orally Once a day; Duration: 30 day(s) Active Walking Boot/Pneumatic As directed Wear Daily; Duration: Until further notice 11/02/2021 Active Social History [...] Problem Acquired hammer toe of left foot (204475654193030 3) Other hammer toe(s) (acquired), left foot (M20.42) Active confirmed Problem Plantar nerve lesion (713350492) Lesion of plantar nerve, 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 confirmed Problem Interstitial myositis (31157208) 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 Plan Of Treatment Pending Test Test Name Order Date X ray : Foot, left 3V 11/02/2021 48671, J0702- Neuroma/Injection 12/08/19 25374, J0702- Neuroma/Injection 06/11/19 Insurance Providers Payer Name Payer Address Payer Phone Subscriber Number Group Number Insured Name Patient Relationship to Insured Coverage Start Date Coverage End Date Medicare National Govt Svcs Inc [address] [place] [address] [id number] Doris Lowry Self - patient is the insured [employer]) [address] [place] [address] [phone] [id number] Doris Lowry Self - patient is the insured Medical (General) History Medical History History ICD Code Diverticulosis Reflux Lyme disease Measles Mumps Chicken pox Surgical History Surgery Date(Month/Year)
--- OUTSIDE RECORDS SUMMARY | 2025-02-19 07:57 | XMS_ITS | Patient Health Record ---
Author Organization [facility] Address [address] [place] [address] Care Team Providers Care Fine Arts Model Name Role Phone Marie (RETIRED) David ORLANDO Primary Care Provide Yakov Hogan [phone] Allergies Allergen (clinical drug ingredient) Drug/Non Drug Allergy documented on EMR Reaction Allergy Type Onset Date Status codeine Codeine Sulfate Unknown Drug Allergy A ctive Reason For Referral No Information Medications Medication SIG (Take, Route, Frequency, Duration) Notes Start Date End Date Status Omeprazole 20 MG Capsule Delayed Release 1 capsule Orally Once a day; Duration: 90 days 11/12/2013 Active Social History Social History Additional Details Category Social Info Options Details Miscellaneous: Marital status: 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 Notes: Nonsmoker; no sig alcohol Problems Problem Type SNOMED Code ICD Code Onset Dates Problem Status W/U Status Risk Notes Problem Screening for malignant neoplasm of colon (023137752) Encounter for screening for malignant neoplasm of colon (Z12.11) Active confirmed Problem Screening for malignant neoplasm of rectum (212470096) Encounter for screening for malignant neoplasm of rectum (Z12.12) Active confirmed Problem Gastroesophageal reflux disease (826571879) Gastroesophageal reflux disease, esophagitis presence not specified (K21.9) Active confirmed Plan Of Treatment Future Test Test Name Order Date COLONOSCOPY 2015 Insurance Providers Payer Name Payer Address Payer Phone Subscriber Number Group Number Insured Name Patient Relationship to Insured Coverage Start Date Coverage End Date MEDICARE OF [place] [address] [place] [address] [id number] PEDRO PABLO KUHN Self - patient is the insured [facility] [address] [place] [address] [phone] [id number] PEDRO PABLO Self - patient is the insured Medical (General) History Medical History History ICD Code Denies AR,DM,CVA,Lung disease,renal dise ase GERD--EGD in 1999--no sig. esophagitis n or Hargrove's, small HH Neg colonoscopy in 04/2005 except for div erticulosis and internal hemorrhoids
--- OUTSIDE RECORDS SUMMARY | 2025-02-19 07:57 | XMS_ITS | Clinical Summary ---
Author Organization [facility] Address [address] [address] Phone Care Team Providers Care Media Services Director Name Role Phone David Salazar MD Primary Care Provider Allergies Active Allergy Reactions Criticality Noted Date Comments Codeine 04/23/2019 Medications omeprazole (PRILOSEC) 20 MG capsule 04/21/2019 Active Active Problems No known active problems Social History Tobacco Use Types Packs/Day Years Used Date Smoking Tobacco: Never Smokeless Tobacco: Never Alcohol Use Standard Drinks/Week Comments Yes 0 (1 standard drink = 0.6 oz pur e alcohol) Occasionally Education Answer Date Recorded Are you interested in more education? Not on thaddeus e 07/02/2022 Are you concerned about learning? Not on file 07/02/2022 No 07/02/2022 No 07/02/2022 Digital Access Answer Date Recorded No 07/31/2022 No 07/31/2022 No 07/31/2022 Reliable internet access at home? Not on file 07/31/2022 Device with a working camera? Not on file Comments Unknown Sex and Gender Information Value Date Recorded Sex Assigned at Not on file Legal Sex Female 9:52 AM EST Gender Identity Not on file Sexual Orientation Not on file Last Filed Vital Signs Vital Sign Reading Time Taken Comments Blood Pressure 147/86 11/19/2020 8:30 AM EDT Pulse 62 11/19/2020 8:30 AM EDT Temperature 36.4 C (97.6 F) 11/19/2020 8:30 AM EDT Respiratory Rate 18 11/19/2020 8:30 AM EDT Oxygen Saturation 100% 11/19/2020 8:30 AM EDT Inhaled Oxygen Concentration - - Weight 48.2 kg (106 lb 3.2 oz) 04/23/2019 10:27 AM EST Height 162.6 cm (5' 4 ) 04/23/2019 10:27 AM EST Body Mass Index 18.23 04/23/2019 10:27 AM EST Plan of Treatment Health Maintenance Due Date Last Done Comments Adult Td,Tdap Booster 1949 LIPID PANEL 1949 DEPRESSION SCREENING 1961 HEPATITIS C SCREENING 07/30/1967 COLOGUARD 1994 COLONOSCOPY 1994 COLORECTAL CANCER SCREENING 1994 FIT TEST 1994 FOBT 1994 SIGMOIDOSCOPY 1994 VIRTUAL COLONOSCOPY 1994 PNEUMOCOCCAL VACCINES (50+ years) (1 of 1 - PCV) 07/30/1999 ZOSTER VACCINES (1 of 2) 07/30/1999 OSTEOPOROSIS SCREENING INITI AL (ONE-TIME) 2014 RSV VACCINE (1 - 1-dose 75+ series) 2024 INFLUENZA VACCINE (#1) 2024 COVID-19 VACCINE (3 - 2024-2 6 season) 2024 06/27/2020, 05/29/2020 SMOKING STATUS SCREENING (On ce After 26 Yrs) Completed 11/19/2020 HEPATITIS A VACCINES Aged Out No long er eligible based on patient's age to complete this topic HIB VACCINES Aged Out No longer eligi ble based on patient's age to complete this topic MENINGOCOCCAL VACCINES (ACWY) Aged Out No longer eligible based on patient's age to complete this topic MENINGOCOCCAL VACCINES (B) Aged Out N o longer eligible based on patient's age to complete this topic Medical Devices Not on file Insurance MEDICARE PART A & B [employer] MEDICARE SUPPLEMENT [employer] [place] [id number] MEDICARE PART A & B [facility] [employer] MEDICARE SUPPLEMENT MEDICARE PART A & B [facility] MEDICARE SUPPLEMENT MEDICARE PART A & B [facility] MEDICARE SUPPLEMENT MEDICARE PART A & B [facility] MEDICARE SUPPLEMENT MEDICARE PART A & B [facility] MEDICARE SUPPLEMENT MEDICARE PART A & B [employer] MEDICARE SUPPLEMENT MEDICARE PART A & B MEDICARE SUPPLEMENT MEDICARE PART A & B [facility]IC[facility] SUPPLEMENT Care Teams Media Services Director Relationship Specialty Start Date End Date David Salazar MD [address] [place] [address] [place] [address] PCP - General Internal Medicine 04/23/19 Additional Source Comments The information contained in this document represents components of the legal health record. It is not the complete legal health record.[facility]
== END 2025-02-19 07:49 | disposition home or self-care (01) ==
LOC: HO.MAMMO 07:48
PROVIDERS: PCP Nurse Practitioner Family; Visit Provider Nurse Practitioner Family
DX: Z12.31 Encounter for screening mammogram for malignant neoplasm of breast (principal)
CPT/HCPCS: 77063; 77067

== ENCOUNTER → 2025-02-19 08:00 | Outpatient (BNV) | payer MEDICARE, OTHER, SELFPAY | PROVIDERS: PCP Nurse Practitioner Family; Visit Provider Internal Medicine | DX: Z12.31 Encounter for screening mammogram for malignant neoplasm of breast (principal) | CPT/HCPCS: 77063; 77067 ==